=== PATIENT | male | born 1965 | race Caucasian/White ===

== ENCOUNTER → 2016-08-16 | Outpatient (CLI) | payer OTHER | LOC: BMCIMAGING 16:04 | PROVIDERS: ATTEND Podiatrist Foot & Ankle Surgery | DX: R22.41 Localized swelling, mass and lump, right lower limb (principal) ==

== ENCOUNTER → 2017-09-05 | Outpatient (CLI) | payer OTHER | LOC: BMCIMAGING 11:45 | PROVIDERS: ATTEND Physician Assistant | DX: M19.022 Primary osteoarthritis, left elbow (principal) ==

== ENCOUNTER 2017-11-02 19:46 | Emergency (ER) | payer OTHER ==
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
[2017-11-02] MEDS: LET GEL TOPICAL 1 EA SYR TP ONE (20:30)
[2017-11-02] MEDS ORDERED: IBUPROFEN 600 MG TAB PO ONE (21:06)
[2017-11-02] MEDS: IBUPROFEN 600 MG TAB PO ONE (21:07)
[2017-11-02 22:11] VITALS: BP 132/93
== END 2017-11-02 21:50 | disposition home or self-care (01) ==
LOC: CED 19:46
DX: S52.122A Displaced fracture of head of left radius, initial encounter for closed fracture (principal); S63.601A Unspecified sprain of right thumb, initial encounter; V18.0XXA Pedal cycle driver injured in noncollision transport accident in nontraffic accident, initial encounter; Y92.410 Unspecified street and highway as the place of occurrence of the external cause
CPT/HCPCS: 71046-PO; 73080-PO; 73140-PO; A4565; L3807

== ENCOUNTER → 2017-12-12 | Outpatient (CLI) | payer OTHER | LOC: BMCIMAGING 13:49 | PROVIDERS: ATTEND Physician Assistant | DX: S52.125D Nondisplaced fracture of head of left radius, subsequent encounter for closed fracture with routine healing (principal) ==

== ENCOUNTER → 2018-01-09 | Outpatient (CLI) | payer OTHER | LOC: BMCIMAGING 10:01 | PROVIDERS: ATTEND Physician Assistant | DX: S42.402A Unspecified fracture of lower end of left humerus, initial encounter for closed fracture (principal) ==